=== PATIENT | female | born 1930 | race Hispanic/Latino ===

== ENCOUNTER 2016-09-22 14:09 | Emergency (ER) | payer MEDICARE, OTHER ==
[2016-09-22 15:06] VITALS: BP 129/73
[2016-09-22 16:41] LABS: Bilirubin,Urine NEG (Negative); Blood,Urine NEG (Negative); Ketones,Urine NEG (Negative); Leukocyte Esterase,Urine SM (Negative); Mucus,Urine FEW /HPF; Nitrite,Urine NEG (Negative); Protein,Urine <15 mg/dL mg/dL (Negative); Urobilinogen,Urine < 2.0 mg/dL (<2.0)
[2016-09-22] MEDS ORDERED: TYLENOL PO ONE ×2 (16:55→17:30)
--- NOTE | 2016-09-22 17:00 | Emergency Department Report ---
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 Patient was getting helped to stand up from her left side by her daughter and she was unable to stand up fully and slowly fell to the ground. She did not hit her head and had no LOC. She is mainly complaining about left shoulder pain. - Related Data Previous Rx's Medication Instructions Recorded Last Taken Type Acetaminophen [Tylenol] 650 mg PO Q6HR PRN #20 tablet 09/22/16 Unknown Rx Allergies Allergy/AdvReac Type Severity Reaction Status Date / Time Iodinated Contrast Media - Allergy Unknown Verified 09/22/16 14:59 IV Dye iodine Allergy Unknown Verified 09/22/16 14:59 Penicillins Allergy Unknown Verified 09/22/16 14:59 Sulfa (Sulfonamide Allergy Unknown Verified 09/22/16 14:59 Antibiotics) ED Review of Systems ROS: Stated complaint: LFT SHOULDER PAIN Other details as noted in HPI Comment: All other systems reviewed and negative Constitutional: denies: chills, fever ENT: denies: ear pain Respiratory: denies: cough Cardiovascular: denies: chest pain Gastrointestinal: denies: abdominal pain, vomiting Genitourinary: denies: dysuria Skin: denies: rash Psychiatric: denies: anxiety ED Past Medical Hx - Past Medical History Previous Medical History?: Yes Hx Hypertension: Yes Hx Heart Attack/AMI: Yes (2000) Hx Arthritis: Yes Additional medical history: Paget's disease. ALS/motor neuron. osteoporosis - Social History Smoking Status: Never Smoker Substance Use Type: None - Medications Home Medications: Home Medications Medication Instructions Recorded Confirmed Last Taken Type Acetaminophen [Tylenol] 650 mg PO Q6HR PRN #20 tablet 09/22/16 Unknown Rx ED Physical Exam - General Limitations: Physical Limitation - Head Head exam: Present: atraumatic - Eye Eye exam: Present: normal appearance - ENT ENT exam: Present: normal exam - Neck Neck exam: Present: normal inspection - Respiratory Respiratory exam: Present: normal lung sounds bilaterally, respiratory distress - Cardiovascular Cardiovascular Exam: Present: regular rate, normal rhythm - GI/Abdominal GI/Abdominal exam: Present: soft. Absent: distended, tenderness - Extremities Exam Extremities exam: Present: other (severe tenderness to the proximal left humerus , no empty glenoid fossa, no clear deformity, no wound, decreased strength proximally and distally of the left upper extremity, radial pulse 2+ bilaterally , capillary refill less than 2 seconds distally on both upper extremities, no tenderness to the left elbow) - Neurological Exam Neurological exam: Present: alert, oriented X3 - Psychiatric Psychiatric exam: Present: normal affect - Skin Skin exam: Present: intact ED Course Vital Signs 09/22/16 09/22/16 14:45 16:55 Temperature 98.2 F Pulse Rate 77 Respiratory 16 18 Rate Blood Pressure 129/73 O2 Sat by Pulse 97 97 Oximetry - Reevaluation(s) Reevaluation #1: 09/22/16 18:02 The diagnosis to the patient and family. I answered all questions. Arrangements are being made to get the patient is shoulder immobilizer on the left side. Will discharge home. ED Medical Decision Making - Medical Decision Making X-ray, Tylenol X-ray of the left shoulder reveals a fracture of the proximal humerus Plan will be to place the patient in a sling and take Tylenol as needed for pain and follow-up with orthopedics Critical care attestation.: If time is entered above; I have spent that time in minutes in the direct care of this critically ill patient, excluding procedure time. ED Disposition Clinical Impression: Proximal humerus fracture Qualifiers: Encounter type: initial encounter Fracture type: closed Fracture morphology: unspecified fracture morphology Laterality: left Qualified Code(s): S42.202A - Unspecified fracture of upper end of left humerus, initial encounter for closed fracture Disposition: DISCHARGED TO HOME OR SELFCARE Is pt being admited?: No Does the pt Need Aspirin: No Condition: Stable Instructions: Arm Fracture in Adults (ED) Additional Instructions: Please follow up with your primary care doctor and an orthopedist in the next 3- 5 days. Return to the emergency room if you have any more falls, severe pain or any new symptoms. Prescriptions: Acetaminophen [Tylenol] 650 mg PO Q6HR PRN #20 tablet PRN Reason: Pain Referrals: JAMAICA TAM MD [Primary Care Provider] - 3-5 Days
--- NOTE | 2016-09-23 09:48 | XRay Report ---
Left shoulder 2 views: History: Pain after fall. Findings: There is fracture of the neck of humerus with impaction at the site of fracture. No dislocation. Impression: Fracture neck left humerus.
== END 2016-09-22 18:18 | disposition home or self-care (01) ==
LOC: ED 14:09
DX: S42.202A Unspecified fracture of upper end of left humerus, initial encounter for closed fracture (principal); I10 Essential (primary) hypertension; I25.2 Old myocardial infarction; W18.30XA Fall on same level, unspecified, initial encounter; Y93.9 Activity, unspecified; Y92.9 Unspecified place or not applicable; Y99.9 Unspecified external cause status
CPT/HCPCS: 81001